=== PATIENT | male | born 1980 | race Caucasian/White ===

== ENCOUNTER → 2017-03-17 | Outpatient (CLI) | payer BC ==
--- NOTE | 2017-03-17 10:59 | KCIC ---
PQRS Compliance Statement: One or more of the following individualized dose reduction techniques were utilized for this examination: 1. Automated exposure control 2. Adjustment of the mA and/or kV according to patient size 3. Use of iterative reconstruction technique CT maxillofacial without contrast March 17, 2017 COMPARISON: MRI brain September 29, 2013 TECHNIQUE: Multiple axial CT images of the maxillofacial structures were obtained without intravenous contrast. Coronal and sagittal reformats are provided. FINDINGS: Visualized portions of the frontal lobes are normal. Orbits are normal in appearance. Extraocular muscles are intact. No intraconal or extraconal soft tissue mass is identified. There is mild mucosal thickening of the maxillary sinuses. Frontal sinuses, ethmoid air cells and sphenoid sinuses are well aerated. Nasal cavity is well aerated. Nasal septum is minimally deviated to the left. Sella turcica is not expanded. There is aeration of the left clinoid process. No cystic or solid mass involving the maxilla. No acute fracture. There is no cystic or solid mass involving the mandible. There is no acute fracture. Patient has an underbite. The temporomandibular joints are well aligned. No flattening of the mandibular or coronoid process. No osseous remodeling of the temporal bone. Skull base is intact. Small left mastoid effusion. IMPRESSION: 1. Mandibular condyles are well aligned. No osseous erosions or contour abnormality is noted. 2. Small left mastoid effusion. 3. Suggestion of malocclusion (underbite). Electronically signed by: Beata Domingo MD (03/17/2017 10:55 AM) [id number]
== END | disposition home or self-care (01) ==
LOC: KCIC CT 10:23
DX: H74.8X2 Other specified disorders of left middle ear and mastoid (principal); M26.4 Malocclusion, unspecified
CPT/HCPCS: 70486

== ENCOUNTER → 2017-08-24 | Day surgery (SDC) | payer OTHER, BC ==
[~2017-08-24] MED LIST: LIDOCAINE 1% PF 2 ML VIAL. ID; MORPHINE SULFATE 4 MG/ML DISP.SYRIN. IV; ONDANSETRON PF 4 MG/2 ML VIAL. IV; PROCHLORPERAZINE 10 MG/2 ML VIAL. IV; PROPOFOL 40 ML IV; fentaNYL PF VIAL 100 MCG/2 ML VIAL IV
[2017-08-24] MEDS: IV RINGERS,LACTATED 1000ML 1,000 ML IV (15:49)
== END ==
LOC: SURG 14:35
DX: K58.9 Irritable bowel syndrome, unspecified (principal); K64.0 First degree hemorrhoids; F41.9 Anxiety disorder, unspecified; F32.9 Major depressive disorder, single episode, unspecified; Z88.0 Allergy status to penicillin; Z88.2 Allergy status to sulfonamides
CPT/HCPCS: 45380; 88305; J2704